=== PATIENT | female | born 1960 | race Caucasian/White ===

== ENCOUNTER 2018-08-12 18:22 | Emergency (ER) | payer OTHER, MEDICARE ==
[~2018-08-12] VITALS: Ht 165.1 cm; Wt 98.6 kg
[2018-08-12 19:25] LABS: BASOPHILS # (AUTO) 0.14 x10^3/uL (0-0.1); BASOPHILS % (AUTO) 1 % (0-1); EOSINOPHILS # (AUTO) 0.01 x10^3/uL (0-0.4); EOSINOPHILS % (AUTO) 0 % (1-7); LYMPHOCYTES # (AUTO) 2.33 x10^3/uL (1-3.4); LYMPHOCYTES % (AUTO) 14 % (22-44); MD NO; MEAN CORPUSCULAR HEMOGLOBIN 29.5 pg (27.0-34.8); MEAN CORPUSCULAR HGB CONC 32.9 g/dL (32.4-35.8); MEAN CORPUSCULAR VOLUME 89.7 fL (80-100); MEAN PLATELET VOLUME 8.6 fL (7.4-10.4); MONOCYTES # (AUTO) 0.88 x10^3/uL (0.2-0.8); MONOCYTES % (AUTO) 6 % (2-9); NEUTROPHILS % (AUTO) 79 % (42-75); PLATELET COUNT 302 x10^3/uL (130-400); RED BLOOD COUNT 3.96 x10^6/uL (3.82-5.3); RED CELL DISTRIBUTION WIDTH 14.4 % (9.6-15.2)
[2018-08-12 19:36] LABS: ALBUMIN 3.5 g/dL (3.4-5.0); ANION GAP 6 mmol/L (5-15); CALCIUM 8.9 mg/dL (8.5-10.1); CHLORIDE 112 mmol/L (98-107); CREATININE 0.96 mg/dL (0.55-1.02)
[2018-08-12] MEDS ORDERED: SODIUM CHLORIDE FLUSH 10ML SYR IVF ONE (20:00)
[2018-08-12] MEDS ORDERED: DIPHENHYDRAMINE 50 MG/ML, 1ML IVPush ONE (20:00)
[2018-08-12] MEDS ORDERED: methylPREDNISolone SOD SUCC 125 MG/2 ML IVPush ONE (20:00)
[2018-08-12] MEDS ORDERED: methylPREDNISolone SOD SUCC 125 MG/2 ML ONE (20:22)
--- NOTE | 2018-08-12 20:30 | NUR ---
BLADDER SLING DONE YESTERDAY BY DR. Joy GRANT. C/O FATIGUE , WEAKNESS TODAY. PT HAS MICHAUD IN PLACE.
[2018-08-12] MEDS ORDERED: DIPHENHYDRAMINE 50 MG/ML, 1ML ONE (20:34)
[2018-08-12 20:41] LABS: CULTURE INDICATED? YES; MICROSCOPIC INDICATED
[2018-08-12] MEDS ORDERED: KETOROLAC 30 MG/1 ML ONE (23:11)
[2018-08-12 23:21] VITALS: BP 134/74
--- NOTE | 2018-08-12 23:21 | NUR ---
Patient/Caregiver given discharge instructions and they have confirmed that they understand the instructions. Patient ambulatory with steady gait.
[2018-08-12] MEDS ORDERED: KETOROLAC 30 MG/1 ML IM ONE (23:30)
== END 2018-08-12 23:23 | disposition home or self-care (01) ==
LOC: ED 23:17
DX: R10.2 Pelvic and perineal pain (principal); R50.9 Fever, unspecified
CPT/HCPCS: 36415; 74021; 74176; 80048; 81001; 82040; 83605; 85025; 87040; 87077; 87086; 96372; 96374; 96375; 99284; J1200; J1885; J2930; 87186

== ENCOUNTER 2019-07-29 10:23 | Outpatient (CLI) | payer OTHER, MEDICARE ==
[2019-07-29] MEDS ORDERED: PANT40TA5 PO (10:52)
[2019-07-29] MEDS ORDERED: FLUT1BLS PO (10:52)
[2019-07-29] MEDS ORDERED: [UNRECOGNIZED DRUG - CODE] INH (10:52)
[2019-07-29] MEDS ORDERED: LIOT5TAB11 PO (10:52)
[2019-07-29] MEDS ORDERED: METF500T17 PO (10:52)
[2019-07-29] MEDS ORDERED: LIRA0.6P2 INJ (10:52)
[2019-07-29] MEDS ORDERED: TRAM50TA2 PO (10:52)
[2019-07-29] MEDS ORDERED: MELO15TA24 PO (10:52)
[2019-07-29] MEDS ORDERED: BUPR150T6 PO (10:52)
[2019-07-29] MEDS ORDERED: TRAZ50TA66 PO (10:52)
[2019-07-29] MEDS ORDERED: MEDR10TA3 PO (10:52)
[2019-07-29] MEDS ORDERED: LEVO100T74 PO (10:52)
[2019-07-29] MEDS ORDERED: FEXO180T72 PO (10:52)
[2019-07-29] MEDS ORDERED: SENN-88 PO (10:52)
[2019-07-29] MEDS ORDERED: CERT400K INJ (10:52)
== END 2019-07-29 23:59 | disposition home or self-care (01) ==
LOC: STAR 10:23
PROVIDERS: ATTEND Colon & Rectal Surgery
DX: Z01.818 Encounter for other preprocedural examination (principal)
CPT/HCPCS: 93005

== ENCOUNTER 2019-08-06 06:06 | Day surgery (SDC) | payer OTHER, MEDICARE ==
[~2019-08-06] VITALS: Ht 167.6 cm; Wt 86.0 kg
[~2019-08-06 06:06] MED LIST: BUPR150T6 PO; CERT400K INJ; FEXO180T72 PO; FLUT1BLS PO; LEVO100T74 PO; LIOT5TAB11 PO; LIRA0.6P2 INJ; MEDR10TA3 PO; MELO15TA24 PO; METF500T17 PO; PANT40TA5 PO; SENN-88 PO; TRAM50TA2 PO; TRAZ50TA66 PO; [UNRECOGNIZED DRUG - CODE] INH
[2019-08-06] MEDS ORDERED: EPINEPHRINE 1 MG/ML, 1ML ONE (06:32)
[2019-08-06] MEDS ORDERED: BUPIVACAINE/PF 0.5% ONE (06:32)
[2019-08-06] MEDS ORDERED: ACETAMINOPHEN 500 MG TABLET PO ONE (07:00)
[2019-08-06] MEDS ORDERED: GABAPENTIN 300 MG CAPSULE PO ONE (07:00)
[2019-08-06] MEDS ORDERED: LACTATED RINGERS 1,000 ML IV SCH (07:05)
[2019-08-06 07:15] VITALS: BP 131/76
[2019-08-06] MEDS ORDERED: LIDOCAINE-MPF 1%, 2ML ONE (07:27)
[2019-08-06] MEDS ORDERED: ONDANSETRON 2MG/ML, 2ML IV PRN (07:30)
[2019-08-06] MEDS ORDERED: OXYcodone 5 MG/5 ML ORAL.SOL UDC PO PRN (07:30)
[2019-08-06] MEDS ORDERED: PROMETHAZINE 25 MG/ML, 1ML IV PRN (07:30)
[2019-08-06] MEDS ORDERED: HYDROmorphone 2 MG/ML, 1ML IVPush PRN (07:30)
[2019-08-06] MEDS ORDERED: LABETALOL 5MG/ML, 20ML IV PRN (07:30)
[2019-08-06] MEDS ORDERED: MEPERIDINE/PF 25MG/ML,1ML IVPush PRN (07:30)
[2019-08-06] MEDS ORDERED: EPHEDRINE 50 MG/ML, 1ML IVPush PRN (07:30)
[2019-08-06] MEDS ORDERED: hydrALAzine 20 MG/ML, 1ML IV PRN (07:30)
[2019-08-06] MEDS ORDERED: FENTANYL PF 250 MCG/5ML ONE (10:24)
[2019-08-06] MEDS ORDERED: MIDAZOLAM 1 MG/ML, 2ML ONE (10:24)
[2019-08-06] MEDS ORDERED: PROPOFOL 10 MG/ML, 20ML ONE (10:25)
[2019-08-06] MEDS ORDERED: ONDANSETRON 2MG/ML, 2ML ONE (10:25)
[2019-08-06] MEDS ORDERED: CEFAZOLIN 1,000 MG ONE (10:25)
[2019-08-06] MEDS ORDERED: DEXAMETHASONE 4 MG/ML, 1ML ONE (10:25)
[2019-08-06] MEDS ORDERED: KETOROLAC 30 MG/1 ML ONE (10:54)
[2019-08-06] MEDS ORDERED: LIDOCAINE-MPF 2% ,5ML ONE (10:54)
[2019-08-06] MEDS ORDERED: EPHEDRINE 50 MG/ML, 1ML ONE (10:57)
[2019-08-06] MEDS ORDERED: OXYcodone 5 MG/5 ML ORAL.SOL UDC ONE (11:44)
[2019-08-06] MEDS ORDERED: FENTANYL PF 100 MCG/2ML ONE (11:44)
[2019-08-06] MEDS ORDERED: HYDROmorphone 1 MG/ML, 1ML INJ ONE (11:45)
[2019-08-06] MEDS: FENTANYL PF 100 MCG/2ML IV PRN ×2 (11:48→11:59)
== END 2019-08-06 14:12 | disposition home or self-care (01) ==
LOC: OUT 06:06
PROVIDERS: ATTEND Colon & Rectal Surgery
DX: K64.9 Unspecified hemorrhoids (principal); K21.9 Gastro-esophageal reflux disease without esophagitis; E03.9 Hypothyroidism, unspecified; Z86.19 Personal history of other infectious and parasitic diseases; Z79.899 Other long term (current) drug therapy; Z98.890 Other specified postprocedural states; Z88.1 Allergy status to other antibiotic agents; Z88.8 Allergy status to other drugs, medicaments and biological substances; Z72.89 Other problems related to lifestyle
CPT/HCPCS: 46946; 82962; C1729; J0171; J0690; J1100; J1170; J1885; J2250; J2405; J2704; J3010; J7120

== ENCOUNTER 2019-08-08 07:34 | Inpatient (IN) | payer OTHER, MEDICARE ==
[~2019-08-08] VITALS: Ht 167.6 cm; Wt 94.0 kg
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
--- NOTE | 2019-08-08 08:22 | NUR ---
MICHAUD CATH INSERTED, PT TOLERATED WELL. UA COLLECTED AND SENT
[2019-08-08 08:38] LABS: BASOPHILS # (AUTO) 0.07 x10^3/uL (0-0.1); BASOPHILS % (AUTO) 1 % (0-1); EOSINOPHILS # (AUTO) 0.02 x10^3/uL (0-0.4); EOSINOPHILS % (AUTO) 0 % (1-7); LYMPHOCYTES # (AUTO) 2.19 x10^3/uL (1-3.4); LYMPHOCYTES % (AUTO) 17 % (22-44); MD NO; MEAN CORPUSCULAR HEMOGLOBIN 30.6 pg (27.0-34.8); MEAN CORPUSCULAR VOLUME 92.7 fL (80-100); MEAN PLATELET VOLUME 7.7 fL (7.4-10.4); MONOCYTES # (AUTO) 0.86 x10^3/uL (0.2-0.8); MONOCYTES % (AUTO) 7 % (2-9); NEUTROPHILS # (AUTO) 9.88 x10^3/uL (1.8-6.8); NEUTROPHILS % (AUTO) 76 % (42-75); PLATELET COUNT 245 x10^3/uL (130-400); RED BLOOD COUNT 4.27 x10^6/uL (3.82-5.3); RED CELL DISTRIBUTION WIDTH 14.3 % (9.6-15.2)
[2019-08-08 08:39] LABS: MICROSCOPIC AUTO
[2019-08-08 08:48] LABS: ALBUMIN 3.2 g/dL (3.4-5.0); ANION GAP 6 mmol/L (5-15); CALCIUM 8.9 mg/dL (8.5-10.1); CHLORIDE 108 mmol/L (98-107)
[2019-08-08 08:49] LABS: CREATININE 1.15 mg/dL (0.55-1.02); CULTURE INDICATED? YES
--- NOTE | 2019-08-08 09:29 | NUR ---
PT RESTING ON GURNEY, GIVEN WARM BLANKETS AND HEATER PER REQUEST, PT ALSO REQUESTING HOSPITAL SOCKS, THESE WERE PROVIDED WELL. VSS, NAD NOTED, PT PLACED FOR RECHECK
[2019-08-08] MEDS ORDERED: HYDROmorphone 1 MG/ML, 1ML INJ ONE (09:44)
[2019-08-08] MEDS ORDERED: ONDANSETRON 2MG/ML, 2ML ONE (09:45)
[2019-08-08] MEDS ORDERED: NITROFURANTOIN (MACROBID) 100 MG CAPSULE ONE (09:57)
[2019-08-08] MEDS ORDERED: ONDANSETRON 2MG/ML, 2ML IVPush ONE (10:00)
[2019-08-08] MEDS ORDERED: NITROFURANTOIN (MACROBID) 100 MG CAPSULE PO ONE (10:00)
[2019-08-08] MEDS ORDERED: HYDROmorphone 2 MG/ML, 1ML IVPush PRN (10:00)
--- NOTE | 2019-08-08 10:12 | NUR ---
PT NOW WITH C/O ABD PAIN RATED 7/10, STATES IT FEELS LIKE SHE HAS TO HAVE A BM BUT CANT, PT MEDICATED FOR PAIN PER MAR. ERMD IN TO UPDATE PT ON POC.
[2019-08-08] MEDS ORDERED: SODIUM CHLORIDE 0.9% 1,000 ML IV SCH (10:29)
[2019-08-08] MEDS ORDERED: SODIUM CHLORIDE FLUSH 10ML SYR IVF PRN (10:30)
--- NOTE | 2019-08-08 10:52 | NUR ---
ADMITTING MD IN TO [facility] PT
--- NOTE | 2019-08-08 12:39 | NUR ---
PT RESTING ON SOPHIE QUIROZ. AWAITING BED PLACEMENT. MED REQUEST SENT TO PHARM FOR ABX. FLUIDS HUNG PER MD ORDER. PT DENIES NEEDS AT THIS TIME
--- NOTE | 2019-08-08 13:24 | NUR ---
TASK RN: BEDSIDE REPORT RECEIVED FROM JOSETTE SHIN. PT RESTING ON GURNEY. PT AWAITING TO ROOM ASSIGNMENT. NO NEEDS REQUESTED AT THIS TIME.
--- NOTE | 2019-08-08 14:16 | NUR ---
REPORT GIVEN TO RECIEVING RN, AWAITING TRANSPORT
[2019-08-08] MEDS: AZTREONAM 2 GM in DEXTROSE 5% 100 ML IV SCH ×2 (14:17→22:05)
[2019-08-08 15:25] VITALS: BP 116/75
[2019-08-08] MEDS: ACETAMINOPHEN 325 MG TABLET PO PRN (16:17)
[2019-08-08] MEDS: ENOXAPARIN 40 MG/0.4 ML SQ SCH (16:18)
[2019-08-08] MEDS: KETOROLAC 30 MG/1 ML IVPush PRN (18:29)
[2019-08-08 19:01] VITALS: BP 102/68
[2019-08-08] MEDS: SODIUM CHLORIDE 0.9% 1,000 ML IV SCH (20:35)
[2019-08-09 00:07] VITALS: BP 127/77
[2019-08-09] MEDS: KETOROLAC 30 MG/1 ML IVPush PRN ×3 (01:16→18:20)
[2019-08-09] MEDS: SODIUM CHLORIDE 0.9% 1,000 ML IV SCH (05:12)
[2019-08-09] MEDS: AZTREONAM 2 GM in DEXTROSE 5% 100 ML IV SCH ×3 (05:12→22:36)
[2019-08-09 05:47] LABS: ANION GAP 6 mmol/L (5-15); CALCIUM 8.4 mg/dL (8.5-10.1); CHLORIDE 111 mmol/L (98-107); CREATININE 0.98 mg/dL (0.55-1.02)
[2019-08-09] MEDS ORDERED: LEVOTHYROXINE 100 MCG TABLET PO SCH (06:00)
[2019-08-09] MEDS ORDERED: LIOTHYRONINE 5 MCG TABLET PO SCH (06:00)
[2019-08-09 06:21] LABS: BASOPHILS # (AUTO) 0.01 x10^3/uL (0-0.1); BASOPHILS % (AUTO) 0 % (0-1); EOSINOPHILS # (AUTO) 0.11 x10^3/uL (0-0.4); EOSINOPHILS % (AUTO) 1 % (1-7); LYMPHOCYTES # (AUTO) 2.14 x10^3/uL (1-3.4); LYMPHOCYTES % (AUTO) 22 % (22-44); MD NO; MEAN CORPUSCULAR HEMOGLOBIN 30.1 pg (27.0-34.8); MEAN CORPUSCULAR HGB CONC 32.4 g/dL (32.4-35.8); MEAN PLATELET VOLUME 7.9 fL (7.4-10.4); MONOCYTES # (AUTO) 0.73 x10^3/uL (0.2-0.8); MONOCYTES % (AUTO) 7 % (2-9); NEUTROPHILS # (AUTO) 6.83 x10^3/uL (1.8-6.8); NEUTROPHILS % (AUTO) 70 % (42-75); PLATELET COUNT 220 x10^3/uL (130-400); RED BLOOD COUNT 3.78 x10^6/uL (3.82-5.3); RED CELL DISTRIBUTION WIDTH 14.4 % (9.6-15.2)
[2019-08-09 07:13] VITALS: BP 110/73
[2019-08-09] MEDS ORDERED: TEMPLATE NON-FORMULARY MED. (Bupropion Hcl** (Bupropion Xl**) 150 MG) PO SCH (09:00)
[2019-08-09] MEDS: BUPROPION SR 150 MG TABLET PO SCH (09:04)
[2019-08-09 12:55] VITALS: BP 116/74
[2019-08-09] MEDS: OXYcodone/APAP 5/325MG TABLET PO PRN ×2 (13:41→22:35)
[2019-08-09] MEDS: ENOXAPARIN 40 MG/0.4 ML SQ SCH (16:00)
[2019-08-09 19:49] VITALS: BP 119/72
[2019-08-09] MEDS ORDERED: SODIUM CHLORIDE 0.9% 1,000 ML IV SCH (20:30)
[2019-08-10] MEDS: KETOROLAC 30 MG/1 ML IVPush PRN ×2 (00:30→16:59)
[2019-08-10 00:33] VITALS: BP 112/70
[2019-08-10] MEDS: AZTREONAM 2 GM in DEXTROSE 5% 100 ML IV SCH ×3 (06:12→21:59)
[2019-08-10] MEDS: LEVOTHYROXINE 100 MCG TABLET PO SCH (06:12)
[2019-08-10] MEDS: LIOTHYRONINE 5 MCG TABLET PO SCH (06:12)
[2019-08-10 07:49] VITALS: BP 139/71
[2019-08-10] MEDS: BUPROPION SR 150 MG TABLET PO SCH (08:04)
[2019-08-10 11:40] VITALS: BP 134/80
[2019-08-10] MEDS: ACETAMINOPHEN 325 MG TABLET PO PRN (13:14)
[2019-08-10] MEDS: ENOXAPARIN 40 MG/0.4 ML SQ SCH (16:00)
[2019-08-10 20:18] VITALS: BP 128/78
[2019-08-11 00:43] VITALS: BP 118/73
[2019-08-11] MEDS: AZTREONAM 2 GM in DEXTROSE 5% 100 ML IV SCH ×3 (01:39→17:44)
[2019-08-11] MEDS: KETOROLAC 30 MG/1 ML IVPush PRN ×2 (01:40→10:38)
[2019-08-11] MEDS: LIOTHYRONINE 5 MCG TABLET PO SCH (06:01)
[2019-08-11] MEDS: LEVOTHYROXINE 100 MCG TABLET PO SCH (06:01)
[2019-08-11 06:46] VITALS: BP 128/74
[2019-08-11] MEDS: BUPROPION SR 150 MG TABLET PO SCH (08:39)
[2019-08-11 12:57] VITALS: BP 126/65
[2019-08-11] MEDS: ENOXAPARIN 40 MG/0.4 ML SQ SCH (16:00)
[2019-08-11] MEDS ORDERED: AMOX1TAB64 PO (16:44)
== END 2019-08-11 20:20 | disposition home or self-care (01) | DRG 690 ==
LOC: ED 08:40 → EDIP 10:30 → 3N 14:38
PROVIDERS: ADMIT Internal Medicine Infectious Disease; ATTEND Internal Medicine Infectious Disease
PROC: 0T9B70Z Drainage of Bladder with Drainage Device, Via Natural or Artificial Opening (ICD-10-PCS; principal; 2019-08-08)
DX: N10 Acute pyelonephritis (principal); E86.0 Dehydration; E11.9 Type 2 diabetes mellitus without complications; E03.9 Hypothyroidism, unspecified; K64.9 Unspecified hemorrhoids; M06.9 Rheumatoid arthritis, unspecified; Z87.440 Personal history of urinary (tract) infections; R33.8 Other retention of urine; K21.9 Gastro-esophageal reflux disease without esophagitis; M54.5 Low back pain; Z88.2 Allergy status to sulfonamides; Z88.8 Allergy status to other drugs, medicaments and biological substances; Z88.1 Allergy status to other antibiotic agents; Z91.041 Radiographic dye allergy status; Z91.013 Allergy to seafood
CPT/HCPCS: 36415; 74176; 76770; 80048; 81001; 82040; 85025; 87040; 87077; 87086; 87186; 96374; G0378; J1170; J1650; J1885; J2405; J7030

== ENCOUNTER 2019-11-23 09:05 | Outpatient (CLI) | payer OTHER, MEDICARE ==
[~2019-11-23 09:05] MED LIST changes: +AMOX1TAB64 PO
[2019-11-23] MEDS ORDERED: CERT400K INJ (09:33)
[2019-11-23] MEDS ORDERED: ALBU8.5H8 INH (09:33)
== END 2019-11-23 23:59 | disposition home or self-care (01) ==
LOC: STAR 09:05
PROVIDERS: ATTEND Colon & Rectal Surgery
DX: Z01.818 Encounter for other preprocedural examination (principal); Z11.59 Encounter for screening for other viral diseases; I45.19 Other right bundle-branch block
CPT/HCPCS: 93005; U0001

== ENCOUNTER 2019-11-26 06:13 | Day surgery (SDC) | payer OTHER, MEDICARE ==
[~2019-11-26] VITALS: Ht 167.6 cm; Wt 89.0 kg
[~2019-11-26 06:13] MED LIST changes: +ALBU8.5H8 INH
[2019-11-26] MEDS ORDERED: LACTATED RINGERS 1,000 ML IV SCH (06:31)
[2019-11-26 06:35] VITALS: BP 128/54
[2019-11-26] MEDS ORDERED: BUPIVACAINE/PF-EPI 0.5% 1:200K ONE (06:50)
[2019-11-26] MEDS ORDERED: CHLORHEXIDINE 15 ML UDC MM ONE (07:00)
[2019-11-26] MEDS ORDERED: MIDAZOLAM 1 MG/ML, 2ML ONE (07:15)
[2019-11-26] MEDS ORDERED: FENTANYL PF 250 MCG/5ML ONE (07:15)
[2019-11-26] MEDS ORDERED: ROCURONIUM 10MG/ML,5ML ONE (07:17)
[2019-11-26] MEDS ORDERED: SUCCINYLCHOLINE 20 MG/ML, 10ML ONE (07:18)
[2019-11-26] MEDS ORDERED: DEXAMETHASONE 4 MG/ML, 1ML ONE (07:57)
[2019-11-26] MEDS ORDERED: PROPOFOL 10 MG/ML, 20ML ONE (07:57)
[2019-11-26] MEDS ORDERED: BUPIVACAINE/PF-EPI 0.5% 1:200K INFIL ONE (08:08)
[2019-11-26] MEDS ORDERED: ACETAMINOPHEN 325 MG TABLET PO PRN (09:00)
[2019-11-26] MEDS ORDERED: DIPHENHYDRAMINE 50 MG/ML, 1ML IVPush PRN (09:00)
[2019-11-26] MEDS ORDERED: DIAZEPAM 5 MG/ML, 2ML IVPush PRN (09:00)
[2019-11-26] MEDS ORDERED: LABETALOL 5MG/ML, 20ML IV PRN (09:00)
[2019-11-26] MEDS ORDERED: HYDROmorphone 1 MG/ML, 1ML INJ IVPush PRN (09:00)
[2019-11-26] MEDS ORDERED: PROMETHAZINE 25 MG/ML, 1ML IVPush PRN (09:00)
[2019-11-26] MEDS ORDERED: MIDAZOLAM 1 MG/ML, 2ML IV PRN (09:00)
[2019-11-26] MEDS ORDERED: EPHEDRINE 50 MG/ML, 1ML IVPush PRN (09:00)
[2019-11-26] MEDS ORDERED: ONDANSETRON 2MG/ML, 2ML IVPush PRN (09:00)
[2019-11-26] MEDS ORDERED: PROMETHAZINE 12.5 MG SUPP PR PRN (09:00)
[2019-11-26] MEDS ORDERED: FENTANYL PF 100 MCG/2ML IV PRN (09:00)
[2019-11-26] MEDS ORDERED: ALBUTEROL SULFATE 2.5 MG/3 ML NPPB PRN (09:00)
[2019-11-26] MEDS ORDERED: MEPERIDINE/PF 25MG/0.5ML IVPush PRN (09:00)
[2019-11-26] MEDS ORDERED: hydrALAzine 20 MG/ML, 1ML IV PRN (09:00)
[2019-11-26] MEDS: OXYcodone 5 MG/5 ML ORAL.SOL UDC PO PRN ×2 (09:05→09:51)
[2019-11-26] MEDS ORDERED: OXYcodone 5 MG/5 ML ORAL.SOL UDC ONE ×2 (09:07→09:48)
[2019-11-26] MEDS ORDERED: FENTANYL PF 100 MCG/2ML ONE (09:07)
== END 2019-11-26 11:15 | disposition home or self-care (01) ==
LOC: OUT 06:13
PROVIDERS: ATTEND Colon & Rectal Surgery
DX: K64.4 Residual hemorrhoidal skin tags (principal); K60.3 Anal fistula; E03.9 Hypothyroidism, unspecified; K74.60 Unspecified cirrhosis of liver; B19.20 Unspecified viral hepatitis C without hepatic coma; K51.90 Ulcerative colitis, unspecified, without complications; M06.9 Rheumatoid arthritis, unspecified; K21.9 Gastro-esophageal reflux disease without esophagitis; Z79.890 Hormone replacement therapy; Z79.899 Other long term (current) drug therapy; Z88.2 Allergy status to sulfonamides; Z88.8 Allergy status to other drugs, medicaments and biological substances; Z91.011 Allergy to milk products; Z91.013 Allergy to seafood; Z83.3 Family history of diabetes mellitus; Z82.49 Family history of ischemic heart disease and other diseases of the circulatory system; Z80.51 Family history of malignant neoplasm of kidney
CPT/HCPCS: 46270; J0330; J1100; J2250; J2704; J3010; J7120

== ENCOUNTER 2020-01-08 22:14 | Emergency (ER) | payer OTHER, MEDICARE ==
[~2020-01-08] VITALS: Ht 167.6 cm; Wt 93.7 kg
[~2020-01-08 22:14] MED LIST changes: +SENN-190 PO; -SENN-88 PO
[2020-01-08 22:53] LABS: MICROSCOPIC INDICATED
[2020-01-08 23:00] LABS: BASOPHILS # (AUTO) 0.05 x10^3/uL (0-0.1); BASOPHILS % (AUTO) 1 % (0-1); EOSINOPHILS # (AUTO) 0.07 x10^3/uL (0-0.4); EOSINOPHILS % (AUTO) 1 % (1-7); LYMPHOCYTES # (AUTO) 2.23 x10^3/uL (1-3.4); LYMPHOCYTES % (AUTO) 24 % (22-44); MD NO; MEAN CORPUSCULAR HGB CONC 33.1 g/dL (32.4-35.8); MEAN CORPUSCULAR VOLUME 93.8 fL (80-100); MEAN PLATELET VOLUME 7.7 fL (7.4-10.4); MONOCYTES # (AUTO) 0.37 x10^3/uL (0.2-0.8); MONOCYTES % (AUTO) 4 % (2-9); NEUTROPHILS # (AUTO) 6.67 x10^3/uL (1.8-6.8); NEUTROPHILS % (AUTO) 71 % (42-75); PLATELET COUNT 345 x10^3/uL (130-400); RED BLOOD COUNT 4.38 x10^6/uL (3.82-5.3)
[2020-01-08 23:12] LABS: ALANINE AMINOTRANSFERASE 29 U/L (12-78); ALBUMIN 3.5 g/dL (3.4-5.0); ANION GAP 8 mmol/L (5-15); CALCIUM 8.7 mg/dL (8.5-10.1); CHLORIDE 108 mmol/L (98-107); CREATININE 1.32 mg/dL (0.55-1.02)
[2020-01-08 23:14] LABS: ALKALINE PHOSPHATASE 85 U/L (45-117); BILIRUBIN,TOTAL 0.6 mg/dL (0.2-1.0)
[2020-01-09] MEDS ORDERED: MORPHINE SULFATE 4 MG/ML, 1ML IVPush PRN (01:30)
[2020-01-09] MEDS ORDERED: CIPROFLOXACIN/PMX 400MG/200ML 200 ML IV ONE (01:30)
[2020-01-09] MEDS ORDERED: ONDANSETRON 2MG/ML, 2ML IVPush ONE (01:30)
[2020-01-09] MEDS ORDERED: CEFTRIAXONE PMX 1GM/50ML 50 ML IV ONE (01:30)
[2020-01-09] MEDS ORDERED: MORPHINE SULFATE 4 MG/ML, 1ML ONE (01:39)
[2020-01-09] MEDS ORDERED: CEFTRIAXONE PMX 1GM/50ML 50 ML ONE (01:39)
[2020-01-09] MEDS ORDERED: ONDANSETRON 2MG/ML, 2ML ONE (01:39)
[2020-01-09 01:59] VITALS: BP 135/82
--- NOTE | 2020-01-09 02:00 | NUR ---
PT HERE FOR RIGHT FLANK PAIN. VSS. PIV PLACED AND PT MEDICATED FOR PAIN AND NAUSEA. ABX RUNNING.
== END 2020-01-09 03:18 | disposition home or self-care (01) ==
LOC: ED 01-09 02:18
DX: N10 Acute pyelonephritis (principal); E03.9 Hypothyroidism, unspecified; K21.9 Gastro-esophageal reflux disease without esophagitis
CPT/HCPCS: 36415; 80053; 81001; 83690; 85025; 87077; 87086; 87186; 96365; 96375; 99284; J0696; J2270; J2405

== ENCOUNTER 2020-02-15 16:08 | Inpatient (IN) | payer OTHER, MEDICARE ==
[~2020-02-15] VITALS: Ht 170.2 cm; Wt 91.7 kg
--- NOTE | 2020-02-15 16:37 | NUR ---
PT IN GOWN IN [facility] WITH DR COLLAZO AT FOR PT HISTORY AND ASSESSMENT. PT EDUCATED ON ER PROCESS AND POC AND VERBALIZES UNDERSTANDING. PT ATTACHED TO VS MONITORS AND CARDIAC MONITORS. VSS AT THIS TIME. PT HAS CALL LIGHT WITHIN REACH.
[2020-02-15] MEDS ORDERED: MORPHINE SULFATE 4 MG/ML, 1ML ONE ×2 (16:55→18:43)
[2020-02-15] MEDS: MORPHINE SULFATE 4 MG/ML, 1ML IVPush PRN ×2 (17:04→18:47)
--- NOTE | 2020-02-15 17:04 | NUR ---
PT MEDICATED PER MAR FOR PAIN
[2020-02-15 17:07] LABS: BASOPHILS # (AUTO) 0.04 x10^3/uL (0-0.1); BASOPHILS % (AUTO) 1 % (0-1); EOSINOPHILS # (AUTO) 0.05 x10^3/uL (0-0.4); EOSINOPHILS % (AUTO) 1 % (1-7); LYMPHOCYTES # (AUTO) 1.92 x10^3/uL (1-3.4); LYMPHOCYTES % (AUTO) 29 % (22-44); MD NO; MEAN CORPUSCULAR HEMOGLOBIN 30.3 pg (27.0-34.8); MEAN CORPUSCULAR HGB CONC 32.6 g/dL (32.4-35.8); MONOCYTES # (AUTO) 0.49 x10^3/uL (0.2-0.8); MONOCYTES % (AUTO) 7 % (2-9); NEUTROPHILS # (AUTO) 4.15 x10^3/uL (1.8-6.8); NEUTROPHILS % (AUTO) 63 % (42-75); PLATELET COUNT 334 x10^3/uL (130-400); RED BLOOD COUNT 4.62 x10^6/uL (3.82-5.3); RED CELL DISTRIBUTION WIDTH 14.6 % (9.6-15.2)
[2020-02-15 17:19] LABS: ALANINE AMINOTRANSFERASE 48 U/L (12-78); ALBUMIN 3.7 g/dL (3.4-5.0); ANION GAP 8 mmol/L (5-15); CALCIUM 9.2 mg/dL (8.5-10.1); CHLORIDE 109 mmol/L (98-107); CREATININE 1.17 mg/dL (0.55-1.02)
[2020-02-15 17:24] LABS: ALKALINE PHOSPHATASE 83 U/L (45-117); BILIRUBIN,TOTAL 0.6 mg/dL (0.2-1.0); TOTAL PROTEIN 7.3 g/dL (6.4-8.2); TROPONIN I 0.034 ng/mL (0.000-0.045)
[2020-02-15] MEDS ORDERED: LABETALOL 5MG/ML, 20ML ONE (17:29)
[2020-02-15] MEDS ORDERED: LABETALOL 5MG/ML, 20ML IVPush ONE (17:30)
--- NOTE | 2020-02-15 17:34 | NUR ---
PT MEDICATED FOR HTN PER SEP. PT RESTING COMFORTABLY IN [facility] WITH CALL LIGHT WITHIN REACH AND FAMILY AT BS.
[2020-02-15] MEDS ORDERED: MAALOX/HYOSCYAMINE/LIDOCAINE 45 ML BTL PO ONE (19:00)
[2020-02-15] MEDS ORDERED: MAALOX/HYOSCYAMINE/LIDOCAINE 45 ML BTL ONE (19:06)
[2020-02-15] MEDS ORDERED: hydrALAzine 20 MG/ML, 1ML IV PRN (20:00)
[2020-02-15] MEDS ORDERED: NITROGLYCERIN SINGLE TAB 0.4 MG SL PRN (20:00)
[2020-02-15] MEDS ORDERED: MORPHINE SULFATE 4 MG/ML, 1ML IVPush PRN (20:00)
[2020-02-15] MEDS ORDERED: morphine SULFATE 10 MG/ML, 1ML IV PRN (20:00)
--- NOTE | 2020-02-15 20:22 | NUR ---
REPORT CALLED TO JOSETTE HERNANDEZ. HOSPITALIST AT BEDSIDE. TRANSPORT STAFF AT BEDSIDE. CALL LIGHT IN REACH.
[2020-02-15 21:34] VITALS: BP 143/85
[2020-02-15] MEDS: SODIUM CHLORIDE FLUSH 10ML SYR IVF SCH (21:39)
[2020-02-15] MEDS: ATORVASTATIN 80 MG TABLET PO SCH (21:41)
[2020-02-15] MEDS: LISINOPRIL 10 MG TABLET PO SCH (21:42)
[2020-02-15] MEDS: TRAZODONE 50MG TABLET PO SCH (21:45)
[2020-02-15 22:14] LABS: CHOLESTEROL, TOTAL 171 mg/dL (140-239); TRIGLYCERIDES 80 mg/dL (50-200); VLDL CHOLESTEROL 16 mg/dL (0-25)
[2020-02-15 22:16] LABS: CHOL/HDL RATIO 3.4; HDL CHOL % 29 % (28-40); HDL CHOLESTEROL (DIRECT) 50 mg/dL (40-60); LDL CHOLESTEROL,CALCULATED 105 mg/dL (54-169); LDL/HDL RATIO 2.1 (0.5-3.0); TROPONIN I 0.311 ng/mL (0.000-0.045)
[2020-02-16 03:40] VITALS: BP 136/72
[2020-02-16] MEDS: LIOTHYRONINE 5 MCG TABLET PO SCH (06:18)
[2020-02-16] MEDS: ASPIRIN 325 MG TABLET EC PO SCH (06:19)
[2020-02-16] MEDS: LEVOTHYROXINE 100 MCG TABLET PO SCH (06:19)
[2020-02-16] MEDS: PANTOPRAZOLE 40MG TABLET PO SCH (06:20)
[2020-02-16 07:08] VITALS: BP 116/76
[2020-02-16] MEDS ORDERED: HEPARIN 25,000 UNITS/250ML PMX 250 ML IV PRN (07:30)
[2020-02-16] MEDS ORDERED: HEPARIN 5,000 UNITS/ML, 1ML IV ONE (07:30)
[2020-02-16] MEDS ORDERED: HEPARIN 5,000 UNITS/ML, 1ML IV PRN (07:30)
[2020-02-16] MEDS: FLUTICASONE/VILANTEROL 200-25MCG/INH INH SCH (07:41)
[2020-02-16] MEDS: [UNRECOGNIZED DRUG - REMARK] HOMEMEDPO SCH (07:42)
[2020-02-16] MEDS: SODIUM CHLORIDE FLUSH 10ML SYR IVF SCH ×2 (07:42→20:14)
[2020-02-16] MEDS: BUPROPION SR 150 MG TABLET PO SCH (07:57)
[2020-02-16] MEDS: LISINOPRIL 10 MG TABLET PO SCH (07:57)
[2020-02-16] MEDS: METOPROLOL TARTRATE 25 MG TAB PO SCH ×2 (07:57→16:26)
[2020-02-16] MEDS ORDERED: DIPHENHYDRAMINE 50 MG/ML, 1ML IVPush ONE (09:00)
[2020-02-16] MEDS ORDERED: methylPREDNISolone SOD SUCC 125 MG/2 ML IVPush SCH (09:00)
[2020-02-16] MEDS ORDERED: MEDROXYPROGESTERONE ACETATE 5 MG TABLET PO SCH (09:00)
[2020-02-16] MEDS ORDERED: HYDROCHLOROTHIAZIDE 12.5 MG CAPSULE PO SCH (09:00)
[2020-02-16] MEDS ORDERED: ALBUTEROL HFA 90 MCG/SPRAY INH PRN (09:00)
[2020-02-16 12:42] VITALS: BP 114/74
[2020-02-16] MEDS ORDERED: MIDAZOLAM 1 MG/ML, 5ML ONE (13:57)
[2020-02-16] MEDS ORDERED: VERAPAMIL 2.5 MG/ML, 2ML ONE (13:58)
[2020-02-16] MEDS ORDERED: LIDOCAINE-MPF 1%, 5ML ONE (13:58)
[2020-02-16] MEDS ORDERED: HEPARIN 1,000 UNITS/ML, 10ML ONE (13:58)
[2020-02-16] MEDS ORDERED: FENTANYL PF 100 MCG/2ML ONE (13:58)
[2020-02-16] MEDS ORDERED: TICAGRELOR 90 MG TABLET ONE (13:58)
[2020-02-16] MEDS ORDERED: BIVALIRUDIN 250 MG ONE (13:58)
[2020-02-16] MEDS: SODIUM CHLORIDE 0.9% 1,000 ML IV SCH (15:22)
[2020-02-16] MEDS ORDERED: DOCUSATE 100 MG CAPSULE PO PRN (17:00)
[2020-02-16] MEDS: TRAZODONE 50MG TABLET PO SCH (20:14)
[2020-02-16] MEDS: ATORVASTATIN 80 MG TABLET PO SCH (20:14)
[2020-02-16 20:24] VITALS: BP 99/62
[2020-02-16] MEDS ORDERED: DIPHENHYDRAMINE 50 MG/ML, 1ML IVPush STA (21:47)
[2020-02-16] MEDS ORDERED: DIPHENHYDRAMINE 50 MG/ML, 1ML ONE (21:49)
[2020-02-17 00:07] VITALS: BP 103/67
[2020-02-17] MEDS ORDERED: DIPHENHYDRAMINE 50 MG/ML, 1ML IVPush STA (02:42)
[2020-02-17] MEDS ORDERED: DIPHENHYDRAMINE 50 MG/ML, 1ML ONE (02:45)
[2020-02-17 02:50] VITALS: BP 106/70
[2020-02-17 05:04] LABS: CALCIUM 8.7 mg/dL (8.5-10.1); CHLORIDE 109 mmol/L (98-107)
[2020-02-17 05:07] LABS: ANION GAP 8 mmol/L (5-15); CREATININE 1.17 mg/dL (0.55-1.02)
[2020-02-17 05:44] VITALS: BP 103/65
[2020-02-17] MEDS: METOPROLOL TARTRATE 25 MG TAB PO SCH ×2 (05:45→16:44)
[2020-02-17] MEDS: ASPIRIN 325 MG TABLET EC PO SCH (05:45)
[2020-02-17] MEDS: LIOTHYRONINE 5 MCG TABLET PO SCH (05:45)
[2020-02-17] MEDS: PANTOPRAZOLE 40MG TABLET PO SCH (05:45)
[2020-02-17] MEDS: LEVOTHYROXINE 100 MCG TABLET PO SCH (05:46)
[2020-02-17 07:16] VITALS: BP 111/72
[2020-02-17] MEDS: SODIUM CHLORIDE 0.9% 1,000 ML IV SCH ×2 (07:45)
[2020-02-17] MEDS: [UNRECOGNIZED DRUG - REMARK] HOMEMEDPO SCH (07:45)
[2020-02-17] MEDS: FLUTICASONE/VILANTEROL 200-25MCG/INH INH SCH (07:45)
[2020-02-17] MEDS: LISINOPRIL 10 MG TABLET PO SCH (08:14)
[2020-02-17] MEDS: BUPROPION SR 150 MG TABLET PO SCH (08:14)
[2020-02-17] MEDS: SODIUM CHLORIDE FLUSH 10ML SYR IVF SCH (08:15)
[2020-02-17] MEDS: methylPREDNISolone SOD SUCC 125 MG/2 ML IVPush SCH ×2 (09:12→16:43)
[2020-02-17] MEDS ORDERED: CLOPIDOGREL 300 MG TABLET PO ONE (10:00)
[2020-02-17] MEDS: DIPHENHYDRAMINE 50 MG/ML, 1ML IVPush PRN ×2 (10:12→16:43)
[2020-02-17 13:17] VITALS: BP 120/73
[2020-02-17] MEDS ORDERED: ATOR-2 PO (15:19)
[2020-02-17] MEDS ORDERED: METO25TA35 PO (15:19)
[2020-02-17] MEDS ORDERED: ASPI-650 PO (15:19)
[2020-02-17] MEDS ORDERED: CLOP75TA PO (15:19)
[2020-02-18] MEDS ORDERED: ASPIRIN 325 MG TABLET EC PO SCH (06:00)
[2020-02-18] MEDS ORDERED: CLOPIDOGREL 75 MG TABLET PO SCH (09:00)
== END 2020-02-17 18:56 | disposition home or self-care (01) | DRG 282 ==
LOC: ED 19:40 → EDIP 19:50 → OBSVTOIN 19:50 → INTOOBSV 19:50 → 5SO 21:20
PROVIDERS: ADMIT Family Medicine; ATTEND Internal Medicine
PROC: 4A023N7 Measurement of Cardiac Sampling and Pressure, Left Heart, Percutaneous Approach (ICD-10-PCS; principal; 2020-02-16)
PROC: B2111ZZ Fluoroscopy of Multiple Coronary Arteries using Low Osmolar Contrast (ICD-10-PCS; 2020-02-16)
PROC: B2151ZZ Fluoroscopy of Left Heart using Low Osmolar Contrast (ICD-10-PCS; 2020-02-16)
DX: I21.4 Non-ST elevation (NSTEMI) myocardial infarction (principal); E03.9 Hypothyroidism, unspecified; E11.9 Type 2 diabetes mellitus without complications; I10 Essential (primary) hypertension; I25.10 Atherosclerotic heart disease of native coronary artery without angina pectoris; M06.9 Rheumatoid arthritis, unspecified; T50.8X5A Adverse effect of diagnostic agents, initial encounter; B19.20 Unspecified viral hepatitis C without hepatic coma; K21.9 Gastro-esophageal reflux disease without esophagitis; Z88.0 Allergy status to penicillin; Z88.8 Allergy status to other drugs, medicaments and biological substances; Z87.891 Personal history of nicotine dependence; Z88.1 Allergy status to other antibiotic agents; Z91.041 Radiographic dye allergy status; Z91.011 Allergy to milk products; Y92.89 Other specified places as the place of occurrence of the external cause
CPT/HCPCS: 36415; 71045; 80048; 80053; 80061; 83036; 83880; 84443; 84484; 85025; 85379; 85520; 93005; 93306; 93458; 99156; C1769; C1894; G0378; J0583; J1644; J2250; J3010; J1200; J2270; J2930; Q9967

== ENCOUNTER 2020-03-11 18:35 | Emergency (ER) | payer OTHER, MEDICARE ==
[~2020-03-11] VITALS: Ht 167.6 cm; Wt 92.0 kg
[~2020-03-11 18:35] MED LIST changes: +ASPI-650 PO; +ATOR-2 PO; +CLOP75TA PO; +METO25TA35 PO
[2020-03-11 20:35] LABS: MICROSCOPIC AUTO
[2020-03-11 21:02] LABS: BASOPHILS # (AUTO) 0.05 x10^3/uL (0-0.1); BASOPHILS % (AUTO) 0 % (0-1); EOSINOPHILS # (AUTO) 0.11 x10^3/uL (0-0.4); EOSINOPHILS % (AUTO) 1 % (1-7); LYMPHOCYTES # (AUTO) 2.39 x10^3/uL (1-3.4); LYMPHOCYTES % (AUTO) 19 % (22-44); MD NO; MEAN CORPUSCULAR HEMOGLOBIN 30.8 pg (27.0-34.8); MEAN CORPUSCULAR HGB CONC 32.9 g/dL (32.4-35.8); MEAN CORPUSCULAR VOLUME 93.6 fL (80-100); MONOCYTES # (AUTO) 0.68 x10^3/uL (0.2-0.8); MONOCYTES % (AUTO) 5 % (2-9); NEUTROPHILS % (AUTO) 75 % (42-75); PLATELET COUNT 313 x10^3/uL (130-400); RED BLOOD COUNT 4.41 x10^6/uL (3.82-5.3); RED CELL DISTRIBUTION WIDTH 13.9 % (9.6-15.2)
[2020-03-11 21:13] LABS: ALANINE AMINOTRANSFERASE 23 U/L (12-78); ALBUMIN 3.4 g/dL (3.4-5.0); ANION GAP 5 mmol/L (5-15); CALCIUM 9.3 mg/dL (8.5-10.1); CHLORIDE 107 mmol/L (98-107); CREATININE 1.12 mg/dL (0.55-1.02)
[2020-03-11 21:15] LABS: ALKALINE PHOSPHATASE 95 U/L (45-117); BILIRUBIN,TOTAL 0.6 mg/dL (0.2-1.0); TOTAL PROTEIN 7.2 g/dL (6.4-8.2)
--- NOTE | 2020-03-11 21:20 | NUR ---
ASSUMED ARE OF PATIENT. PATIENT REPORTS RIGHT FLANK PAIN WITH PAINFUL URINATION. PT REPORTS SHE GETS UTI'S AND HAS A UROLOGIST. VS STABLE. MED STUDENT IN ROOM. NO ACUTE DISTRESS NOTED. CALL LIGHT IN PLACE. WILL CONTINUE TO MONITOR.
--- NOTE | 2020-03-11 22:17 | NUR ---
PT RESTING IN ROOM. NO ACUTE DISTRESS NOTED. WILL CONTIUE TO MONITOR.
[2020-03-11] MEDS ORDERED: NITROFURANTOIN (MACROBID) 100 MG CAPSULE ONE (22:26)
[2020-03-11] MEDS ORDERED: NITROFURANTOIN (MACROBID) 100 MG CAPSULE PO ONE (22:30)
[2020-03-11 22:42] VITALS: BP 126/74
== END 2020-03-11 22:44 | disposition home or self-care (01) ==
LOC: ED 20:52
DX: N30.00 Acute cystitis without hematuria (principal); R30.0 Dysuria; R10.30 Lower abdominal pain, unspecified; M19.90 Unspecified osteoarthritis, unspecified site; K21.9 Gastro-esophageal reflux disease without esophagitis; E03.9 Hypothyroidism, unspecified
CPT/HCPCS: 36415; 80053; 81001; 85025; 87086; 99283

== ENCOUNTER 2020-09-23 10:49 | Inpatient (IN) | payer BC, MEDICARE ==
[~2020-09-23] VITALS: Ht 167.6 cm; Wt 99.3 kg
[~2020-09-23 10:49] MED LIST changes: -ASPI-650 PO; +ASPI325T20 PO; +BUPR150T22 PO; -BUPR150T6 PO; -PANT40TA5 PO; +PANT40TA6 PO
[2020-09-23] MEDS ORDERED: ASPI-963 PO (11:18)
[2020-09-23] MEDS ORDERED: PANT40TA6 PO (11:19)
[2020-09-23] MEDS ORDERED: METF-754 PO (11:20)
[2020-09-23] MEDS ORDERED: METH1TAB21 PO (11:22)
[2020-09-23] MEDS ORDERED: LOSA1TAB19 PO (11:23)
[2020-09-23] MEDS ORDERED: TRAM50TA2 PO (11:24)
[2020-09-23] MEDS ORDERED: DILT180T3 PO (11:24)
[2020-09-23] MEDS ORDERED: NITROGLYCERIN SINGLE TAB 0.4 MG SL PRN (11:30)
[2020-09-23] MEDS ORDERED: ASPIRIN 81 MG TABLET CHEW PO ONE (11:30)
[2020-09-23] MEDS ORDERED: SODIUM CHLORIDE FLUSH 10ML SYR IVF ONE (11:30)
--- NOTE | 2020-09-23 11:30 | NUR ---
PT IS A 59F WITH COMPLAINTS OF AN ACHY MID CHEST PAIN THAT IS CONSTANT. DENIES RADIATION. VOMITED THIS MORNING AND COMPLAINS OF FATIGUE AND SOB WELL. HX OF ME LAST FEBRUARY, NO STENTS PLACED. PROVIDER HAS BEEN TO BEDSIDE FOR EVAL AND POC. CARDIAC, BP, AND SP02 MONITORS IN PLACE. CALL LIGHT WITHIN REACH.
[2020-09-23 11:41] LABS: BASOPHILS % (AUTO) 1 % (0-1); EOSINOPHILS % (AUTO) 1 % (1-7); LYMPHOCYTES % (AUTO) 25 % (22-44); MEAN CORPUSCULAR HEMOGLOBIN 28.6 pg (27.0-34.8); MEAN CORPUSCULAR HGB CONC 32.9 g/dL (32.4-35.8); MEAN PLATELET VOLUME 7.6 fL (7.4-10.4); MONOCYTES % (AUTO) 6 % (2-9); NEUTROPHILS % (AUTO) 67 % (42-75); PLATELET COUNT 412 x10^3/uL (130-400); RED BLOOD COUNT 4.19 x10^6/uL (3.82-5.3); RED CELL DISTRIBUTION WIDTH 16.4 % (9.6-15.2)
[2020-09-23 11:43] LABS: MD NO
[2020-09-23 11:49] LABS: ALBUMIN 3.5 g/dL (3.4-5.0); ANION GAP 9 mmol/L (5-15); CALCIUM 11.3 mg/dL (8.5-10.1); CHLORIDE 104 mmol/L (98-107); CREATININE 0.93 mg/dL (0.55-1.02)
[2020-09-23 11:54] LABS: TROPONIN I < 0.015 ng/mL (0.000-0.045)
--- NOTE | 2020-09-23 12:14 | NUR ---
1ST DOSE OF NITRO GIVEN, NO RELIEF YET. VITALS UPDATED.
--- NOTE | 2020-09-23 12:36 | NUR ---
BREAK RN NOTE: PT REPORTS CHEST PAIN IS UNCHANGED SINCE ARRIVAL, RATES AT 7/10 STERNAL AND NONRADIATING. PT STATES FIRST NITROGLYCERIN DOSE DID NOT IMPROVE PAIN LEVEL, SECOND DOSE ADMINISTERED WITH PT CONSENT FOR CONTINUED CHEST PAIN. ALL MONTIORS IN PLACE, SINUS TACH RATE 110'S WITH NO ECTOPY NOTED ON TRAVEL DIRECTOR. AT BEDSIDE. RN REMAINS AT BEDSIDE TO MONITOR PT POST NITRO ADMIN.
--- NOTE | 2020-09-23 12:40 | NUR ---
SPO2 88-93% ON ROOM AIR, OXYGEN APPLIED VIA NC. PT IS A&O, RESPS EVEN AND UNLABORED, ABLE TO SPEAK IN FULL SENTENCES WITHOUT DIFFICULTY. NO S/SX RESP DISTRESS NOTED.
--- NOTE | 2020-09-23 12:41 | NUR ---
PT REPORTS PAIN DOWN FROM 7/10 TO 4/10 S/P NITRO. BP TOLERATING. PT AWAITING CTA AND DISPO. AT BEDSIDE. CALL LIGHT IN REACH.
--- NOTE | 2020-09-23 12:45 | NUR ---
MD Gleason notified pt hypoxic at 88-93% on room air, maintained on oxygen at 2L/min at this time.
--- NOTE | 2020-09-23 13:12 | NUR ---
report given back to primary RN Amena who is resuming care.
--- NOTE | 2020-09-23 13:42 | NUR ---
PT TO CT VIA GABRIELLA
--- NOTE | 2020-09-23 14:07 | NUR ---
PT BACK FROM CT, RESTING COMFORTABLY, WATCHING TV. ALL MONITORS IN PLACE, CALL LIGHT WITHIN REACH.
--- NOTE | 2020-09-23 14:43 | NUR ---
report to Bianca FINCH
[2020-09-23] MEDS ORDERED: OMNIPAQUE 350 MG/ML, 100ML BOTTLE ONE (15:13)
[2020-09-23] MEDS ORDERED: morphine SULFATE 10 MG/ML, 1ML IVPush PRN (15:30)
[2020-09-23] MEDS ORDERED: ACETAMINOPHEN 325 MG TABLET PO PRN (15:30)
[2020-09-23] MEDS ORDERED: ENALAPRILAT 1.25 MG/ML, 2ML IVPush PRN (15:30)
[2020-09-23] MEDS ORDERED: ONDANSETRON 2MG/ML, 2ML IVPush PRN (15:30)
[2020-09-23] MEDS ORDERED: TRAZODONE 50MG TABLET PO PRN (15:30)
[2020-09-23] MEDS ORDERED: hydrALAzine 20 MG/ML, 1ML IVPush PRN (15:30)
[2020-09-23] MEDS ORDERED: ONDANSETRON ODT 4 MG PO PRN (15:30)
[2020-09-23 16:31] LABS: TROPONIN I < 0.015 ng/mL (0.000-0.045)
[2020-09-23] MEDS ORDERED: TEMAZEPAM 15 MG CAPSULE PO PRN (17:30)
[2020-09-23 17:53] LABS: T4 (THYROXINE) 10.2 mcg/dL (4.8-13.9)
[2020-09-23] MEDS ORDERED: SODIUM CHLORIDE 0.9% 1,000ML IVBOLUS ONE (18:00)
[2020-09-23] MEDS ORDERED: TRAZODONE 50MG TABLET PO SCH (21:00)
[2020-09-23 21:33] VITALS: BP 127/83
[2020-09-23 21:40] LABS: TROPONIN I < 0.015 ng/mL (0.000-0.045)
[2020-09-23] MEDS ORDERED: NITROGLYCERIN 0.4 MG BOTTLE (25 TABS) SL PRN (22:00)
[2020-09-23] MEDS ORDERED: NITROGLYCERIN 0.4 MG/SPRAY SL PRN (22:00)
[2020-09-23] MEDS ORDERED: ALUMINUM/MAG/SIMETHICONE 30 ML UDC PO PRN (23:00)
[2020-09-24 02:07] VITALS: BP 103/68
[2020-09-24 05:02] LABS: CHLORIDE 109 mmol/L (98-107)
[2020-09-24 05:09] LABS: ALANINE AMINOTRANSFERASE 26 U/L (12-78); ALBUMIN 2.8 g/dL (3.4-5.0); ALKALINE PHOSPHATASE 80 U/L (45-117); ANION GAP 9 mmol/L (5-15); BILIRUBIN,TOTAL 0.5 mg/dL (0.2-1.0); CALCIUM 8.7 mg/dL (8.5-10.1); CREATININE 0.96 mg/dL (0.55-1.02); TOTAL PROTEIN 5.8 g/dL (6.4-8.2)
[2020-09-24 05:21] LABS: BASOPHILS % (AUTO) 1 % (0-1); EOSINOPHILS % (AUTO) 2 % (1-7); LYMPHOCYTES % (AUTO) 24 % (22-44); MD NO; MEAN CORPUSCULAR HEMOGLOBIN 28.6 pg (27.0-34.8); MEAN CORPUSCULAR HGB CONC 32.9 g/dL (32.4-35.8); MEAN PLATELET VOLUME 8.1 fL (7.4-10.4); MONOCYTES % (AUTO) 7 % (2-9); NEUTROPHILS % (AUTO) 66 % (42-75); PLATELET COUNT 325 x10^3/uL (130-400); RED BLOOD COUNT 3.63 x10^6/uL (3.82-5.3); RED CELL DISTRIBUTION WIDTH 16.2 % (9.6-15.2)
[2020-09-24] MEDS ORDERED: REGADENOSON 0.4 MG/5 ML SYRINGE ONE (08:22)
[2020-09-24 08:33] VITALS: BP 150/78
[2020-09-24] MEDS ORDERED: DIPHENHYDRAMINE 50 MG/ML, 1ML ONE (08:34)
[2020-09-24] MEDS ORDERED: DIPHENHYDRAMINE 50 MG/ML, 1ML IVPush ONE ×2 (09:00→11:30)
[2020-09-24] MEDS ORDERED: LEVOTHYROXINE 100 MCG TABLET PO SCH (09:00)
[2020-09-24] MEDS ORDERED: METHENAMINE HIPPURATE 1 GM TABLET PO SCH (09:00)
[2020-09-24] MEDS ORDERED: PANTOPRAZOLE 40MG TABLET PO SCH (09:00)
[2020-09-24] MEDS ORDERED: ASPIRIN 81 MG TABLET EC PO SCH (09:00)
[2020-09-24] MEDS ORDERED: LIOTHYRONINE 5 MCG TABLET PO SCH (09:00)
[2020-09-24] MEDS ORDERED: metFORMIN XR 500 MG TAB.ER.24H PO SCH (09:00)
[2020-09-24 10:53] VITALS: BP 116/78
[2020-09-24] MEDS ORDERED: ATOR-2 PO (11:16)
[2020-09-24] MEDS ORDERED: DIPHENHYDRAMINE 25 MG CAPSULE PO ONE (13:00)
[2020-09-24 13:06] VITALS: BP 115/76
[2020-09-24] MEDS ORDERED: METH4TAB2 PO (16:21)
== END 2020-09-24 16:25 | disposition home or self-care (01) | DRG 313 ==
LOC: ED 14:30 → EDIP 14:47 → 5SO 15:03 → DCLOUNGE 09-24 16:18
PROVIDERS: ADMIT Hospitalist; ATTEND Hospitalist
DX: R07.89 Other chest pain (principal); D64.9 Anemia, unspecified; E03.9 Hypothyroidism, unspecified; E83.52 Hypercalcemia; E88.09 Other disorders of plasma-protein metabolism, not elsewhere classified; I25.10 Atherosclerotic heart disease of native coronary artery without angina pectoris; I45.10 Unspecified right bundle-branch block; J45.909 Unspecified asthma, uncomplicated; R09.02 Hypoxemia; M06.9 Rheumatoid arthritis, unspecified; Z88.8 Allergy status to other drugs, medicaments and biological substances; I25.2 Old myocardial infarction; Z88.2 Allergy status to sulfonamides; Z83.3 Family history of diabetes mellitus; Z82.49 Family history of ischemic heart disease and other diseases of the circulatory system
CPT/HCPCS: 36415; 71045; 71275; 78452; 80048; 80053; 82040; 83735; 84436; 84443; 84484; 85025; 85379; 87040; 93005; G0378; J2785; Q9967; A9502; J1200; J7030; Q0163

== ENCOUNTER 2020-10-04 14:07 | Emergency (ER) | payer BC, MEDICARE ==
[~2020-10-04] VITALS: Ht 170.2 cm; Wt 98.8 kg
[~2020-10-04 14:07] MED LIST changes: +ASPI-963 PO; +DILT180T3 PO; +LOSA1TAB19 PO; +METF-754 PO; +METH1TAB21 PO; +METH4TAB2 PO
--- NOTE | 2020-10-04 14:24 | NUR ---
59 yo f bib ems w/ c/o weakness, sob, and dizziness, pts states she has been feeling likeshe was going to pass out for the last 3 weeks and has gotten progressively worst, pt being treated for anemia. was due to get an iron treatment pt denies falling and loc. Dr. Rivero at bedside for evaulation. patient attached to all monitors, vss, nadn. at bedside. awaiting orders.
[2020-10-04 14:51] LABS: BASOPHILS % (AUTO) 1 % (0-1); EOSINOPHILS % (AUTO) 1 % (1-7); LYMPHOCYTES % (AUTO) 22 % (22-44); MEAN CORPUSCULAR HGB CONC 32.2 g/dL (32.4-35.8); MEAN PLATELET VOLUME 7.9 fL (7.4-10.4); MONOCYTES % (AUTO) 6 % (2-9); NEUTROPHILS % (AUTO) 70 % (42-75); PLATELET COUNT 357 x10^3/uL (130-400); RED BLOOD COUNT 3.94 x10^6/uL (3.82-5.3); RED CELL DISTRIBUTION WIDTH 16.8 % (9.6-15.2)
[2020-10-04 14:57] LABS: MD NO
[2020-10-04 15:01] LABS: ALANINE AMINOTRANSFERASE 25 U/L (12-78); ALBUMIN 2.9 g/dL (3.4-5.0); ANION GAP 7 mmol/L (5-15); CALCIUM 8.2 mg/dL (8.5-10.1); CHLORIDE 108 mmol/L (98-107); CREATININE 0.94 mg/dL (0.55-1.02)
[2020-10-04 15:03] LABS: ALKALINE PHOSPHATASE 94 U/L (45-117); BILIRUBIN,TOTAL 0.3 mg/dL (0.2-1.0); TOTAL PROTEIN 6.2 g/dL (6.4-8.2)
--- NOTE | 2020-10-04 15:05 | NUR ---
patient resting comfortably, states she feels really tired and weak, but otherwise no complaints, vss, nadn. at bedside.
[2020-10-04 15:49] VITALS: BP 159/94
--- NOTE | 2020-10-04 15:55 | NUR ---
ambulated patient with pulse ox, O2 remains >95%, pt does report she feels weak and dizzy.
--- NOTE | 2020-10-04 16:29 | NUR ---
Patient/Caregiver given discharge instructions and they have confirmed that they understand the instructions. Patient ambulatory with steady gait.
== END 2020-10-04 16:30 | disposition home or self-care (01) ==
LOC: ED 16:03
DX: R06.00 Dyspnea, unspecified (principal); I25.2 Old myocardial infarction; R51.9 Headache, unspecified; R53.83 Other fatigue; R06.02 Shortness of breath; I45.10 Unspecified right bundle-branch block; R55 Syncope and collapse; I10 Essential (primary) hypertension; E11.9 Type 2 diabetes mellitus without complications
CPT/HCPCS: 36415; 71045; 80053; 85025; 93005; 99285

== ENCOUNTER 2020-12-13 16:21 | Emergency (ER) | payer BC, MEDICARE ==
[~2020-12-13] VITALS: Ht 167.6 cm; Wt 94.0 kg
[2020-12-13 16:31] VITALS: BP 174/80
--- NOTE | 2020-12-13 16:58 | NUR ---
Patient given discharge instructions and they have confirmed that they understand the instructions. Patient ambulatory with steady gait.
== END 2020-12-13 16:59 | disposition home or self-care (01) ==
LOC: ED 16:45
DX: B37.2 Candidiasis of skin and nail (principal); K21.9 Gastro-esophageal reflux disease without esophagitis; E11.9 Type 2 diabetes mellitus without complications
CPT/HCPCS: 99283

== ENCOUNTER 2020-12-16 14:46 | Observation (INO) | payer BC, MEDICARE ==
[~2020-12-16] VITALS: Ht 167.6 cm; Wt 96.6 kg
--- NOTE | 2020-12-16 15:40 | NUR ---
INSPECTOR OPEN DIE: PT TO ROOM FROM LOBBY
[2020-12-16 15:49] LABS: BASOPHILS % (AUTO) 1 % (0-1); EOSINOPHILS % (AUTO) 0 % (1-7); LYMPHOCYTES % (AUTO) 9 % (22-44); MEAN CORPUSCULAR HEMOGLOBIN 28.5 pg (27.0-34.8); MEAN CORPUSCULAR HGB CONC 32.1 g/dL (32.4-35.8); MEAN PLATELET VOLUME 8.1 fL (7.4-10.4); MONOCYTES % (AUTO) 3 % (2-9); NEUTROPHILS % (AUTO) 88 % (42-75); PLATELET COUNT 354 x10^3/uL (130-400); RED BLOOD COUNT 4.35 x10^6/uL (3.82-5.3); RED CELL DISTRIBUTION WIDTH 18.5 % (9.6-15.2)
--- NOTE | 2020-12-16 15:57 | NUR ---
PATIENT WALKED BACK FROM TRIAGE WITH CHIEF C/O SOB SINCE YESTERDAY. PATIENT SEEN YESTERDAY WITH ALLERGIC REACTION AND DISCHARGED HOME, PER PATIENT THIS HAS IMPROVED, BUT SHE IS HAVING A DIFFICULT TIME BREATHING. A&OX4, CONNECTED TO MONITOR, VSS, O2 95% ON RA, SPOUSE AT BEDSIDE,CALL LIGHT WITHIN REACH.
[2020-12-16 15:59] LABS: ALANINE AMINOTRANSFERASE 30 U/L (12-78); ALBUMIN 3.5 g/dL (3.4-5.0); ANION GAP 8 mmol/L (5-15); CALCIUM 9.3 mg/dL (8.5-10.1); CHLORIDE 104 mmol/L (98-107); CREATININE 1.13 mg/dL (0.55-1.02)
[2020-12-16 16:02] LABS: ALKALINE PHOSPHATASE 90 U/L (45-117); BILIRUBIN,TOTAL 0.4 mg/dL (0.2-1.0); TOTAL PROTEIN 7.2 g/dL (6.4-8.2)
[2020-12-16] MEDS ORDERED: ALBUTEROL/IPRATROPIUM 2.5MG/0.5MG, 3 ML NEB ONE (16:30)
[2020-12-16] MEDS ORDERED: KETOROLAC 30 MG/1 ML IVPush ONE (16:30)
--- NOTE | 2020-12-16 16:35 | NUR ---
ERMD AT BEDSIDE TO DISCUSS POC.
[2020-12-16] MEDS ORDERED: ALBUTEROL/IPRATROPIUM 2.5MG/0.5MG, 3 ML ONE (17:01)
[2020-12-16] MEDS ORDERED: KETOROLAC 30 MG/1 ML ONE (17:01)
--- NOTE | 2020-12-16 17:11 | NUR ---
PATIENT MEDICATED PER eMAR, NADN, VSS, SPOUSE AT BEDSIDE, CALL LIGHT WITHIN REACH, NO FURTHER NEEDS AT THIS TIME.
[2020-12-16] MEDS ORDERED: KETOROLAC 30 MG/1 ML IM ONE (17:30)
[2020-12-16] MEDS ORDERED: MORPHINE SULFATE 4 MG/ML, 1ML ONE ×2 (18:15→19:07)
[2020-12-16] MEDS ORDERED: LORazepam 2 MG/ML, 1ML ONE (18:16)
[2020-12-16] MEDS ORDERED: METOCLOPRAMIDE 5 MG/ML, 2ML IVPush ONE (18:30)
[2020-12-16] MEDS ORDERED: LORazepam 2 MG/ML, 1ML IVPush ONE (18:30)
[2020-12-16] MEDS ORDERED: MORPHINE SULFATE 4 MG/ML, 1ML IVPush ONE (18:30)
[2020-12-16] MEDS ORDERED: METOCLOPRAMIDE 5 MG/ML, 2ML ONE (18:36)
--- NOTE | 2020-12-16 18:47 | NUR ---
REPORT TO JOSETTE LUA FOR TRANSFER OF PATIENT CARE.
[2020-12-16 18:51] LABS: TROPONIN I < 0.015 ng/mL (0.000-0.045)
--- NOTE | 2020-12-16 19:13 | NUR ---
PT LAYING IN BED, PT COMPLAINING OF CHEST PAIN, IV MORPHINE GIVEN, ALL NEEDS IN REACH, CALL LIGHT IN REACH, NAD
[2020-12-16] MEDS ORDERED: ASPIRIN 81 MG TABLET CHEW ONE (19:26)
[2020-12-16] MEDS ORDERED: ASPIRIN 81 MG TABLET CHEW PO ONE (19:30)
[2020-12-16] MEDS ORDERED: NITROGLYCERIN 0.4 MG BOTTLE (25 TABS) SL PRN (20:30)
[2020-12-16] MEDS ORDERED: POLYETHYLENE GLYCOL 17 GM PACKET PO PRN (20:30)
[2020-12-16] MEDS ORDERED: morphine SULFATE 10 MG/ML, 1ML IVPush PRN (20:30)
[2020-12-16] MEDS ORDERED: BISACODYL 10 MG SUPP PR PRN (20:30)
[2020-12-16] MEDS ORDERED: ONDANSETRON ODT 4 MG PO PRN (20:30)
--- NOTE | 2020-12-16 20:34 | NUR ---
PT LAYING IN BED, A/OX4, PT REPORTS A DECREASE IN CHEST PAIN, PT STARTED ON 2 LPM NASAL CANULA BECAUSE PT GIVEN IV MORPHINE, AT BEDSIDE, ALL NEEDS IN REACH, CALL LIGHT IN REACH
[2020-12-16 20:49] LABS: FREE T4 (FREE THYROXINE) 1.01 ng/dL (0.76-1.46)
[2020-12-16] MEDS: metFORMIN XR 500 MG TAB.ER.24H PO SCH (21:00)
[2020-12-16] MEDS ORDERED: ACETAMINOPHEN 325 MG TABLET ONE (22:07)
[2020-12-16] MEDS ORDERED: TRAZODONE 50MG TABLET ONE (22:07)
[2020-12-16] MEDS ORDERED: ATORVASTATIN 80 MG TABLET ONE (22:08)
[2020-12-16 22:09] LABS: TROPONIN I < 0.015 ng/mL (0.000-0.045)
[2020-12-16] MEDS: ATORVASTATIN 80 MG TABLET PO SCH (22:10)
[2020-12-16] MEDS: TRAZODONE 50MG TABLET PO SCH (22:10)
[2020-12-16] MEDS: ACETAMINOPHEN 325 MG TABLET PO PRN (22:10)
--- NOTE | 2020-12-16 23:24 | NUR ---
PT ALSEEP IN BED, ALL NEEDS IN REACH, CALL LIGHT IN REACH, NAD
[2020-12-17] MEDS ORDERED: metFORMIN 500 MG TABLET ONE (00:10)
--- NOTE | 2020-12-17 00:14 | NUR ---
PT LAYING IN BED, A/OX4, FINGERSTICK 324, METFORMIN GIVEN, ALL NEEDS IN REACH, CALL LIGHT IN REACH, NAD
--- NOTE | 2020-12-17 00:56 | NUR ---
PT ASLEEP IN BED, ALL NEEDS IN REACH, CALL LIGHT IN REACH, NAD
--- NOTE | 2020-12-17 01:53 | NUR ---
PT ASLEEP IN BED, ALL NEEDS IN REACH, CALL LIGHT IN REACH, NAD
--- NOTE | 2020-12-17 02:28 | NUR ---
PT ASLEEP IN BED, ALL NEEDS IN REACH, CALL LIGHT IN REACH, NAD
--- NOTE | 2020-12-17 03:02 | NUR ---
PT ASLEEP IN BED, ALL NEEDS IN REACH, CALL LIGHT IN REACH, NAD
[2020-12-17 04:08] LABS: TROPONIN I < 0.015 ng/mL (0.000-0.045)
--- NOTE | 2020-12-17 04:18 | NUR ---
PT ASLEEP IN ROOM, ALL NEEDS IN REACH, CALL LIGHT IN REACH, NAD
--- NOTE | 2020-12-17 05:10 | NUR ---
PT ASLEEP IN BED, ALL NEEDS IN REACH, CALL LIGHT IN REACH, NAD
[2020-12-17] MEDS: LIOTHYRONINE 5 MCG TABLET PO SCH (06:07)
[2020-12-17] MEDS: LEVOTHYROXINE 100 MCG TABLET PO SCH (06:07)
--- NOTE | 2020-12-17 06:13 | NUR ---
PT ASLEEP WHEN THIS RN ENTERED ROOM, PT WOKEN UP FOR 6AM MEDS, PT EASILY AWOKEN, VITALS TAKEN AT THIS TIME, ALL NEEDS IN REACH, CALL LIGHT IN REACH, NAD, PT WENT BACK TO SLEEP AFTER MEDICATIONS
--- NOTE | 2020-12-17 07:15 | NUR ---
PT RESTING IN BED, CALL REMOTE WITHIN REACH. NADN. BARRIOS.
--- NOTE | 2020-12-17 07:30 | NUR ---
RECEIVED REPORT FROM MITCHELL FINCH TO ASSUME CARE.
--- NOTE | 2020-12-17 08:06 | NUR ---
REPORT GIVEN TO LENNOX FINCH RM 501 TO ASSUME CARE.
[2020-12-17 08:07] LABS: MEAN CORPUSCULAR HEMOGLOBIN 28.9 pg (27.0-34.8); MEAN CORPUSCULAR HGB CONC 32.7 g/dL (32.4-35.8); PLATELET COUNT 316 x10^3/uL (130-400); RED BLOOD COUNT 4.35 x10^6/uL (3.82-5.3); RED CELL DISTRIBUTION WIDTH 18.6 % (9.6-15.2)
[2020-12-17] MEDS ORDERED: PANTOPRAZOLE 40MG TABLET ONE (08:10)
[2020-12-17] MEDS: PANTOPRAZOLE 40MG TABLET PO SCH (08:13)
[2020-12-17 08:46] LABS: BAND#(MANUAL) 0.42 x10^3/uL; BANDS%(MANUAL) 3 % (0-7); LYMPH#(MANUAL) 1.96 x10^3/uL (1-3.4); LYMPHS% (MANUAL) 14 % (22-44); MONOS#(MANUAL) 0.28 x10^3/uL (0.3-2.7); MONOS% (MANUAL) 2 % (2-9); SEG#(MANUAL) 11.34 x10^3/uL (1.8-6.8); SEGS% (MANUAL) 81 % (42-75)
[2020-12-17 08:47] LABS: <PLATELET ESTIMATE> ADEQUATE; <PLT MORPHOLOGY> NORMAL PLT MORPH; ANISOCYTOSIS 1+; OVALOCYTES 1+
--- NOTE | 2020-12-17 08:58 | NUR ---
BELONGINGS AND MORNING MEDS SENT WITH LEGAL ENTITY CONTROLLER TO ROOM 501.
[2020-12-17] MEDS ORDERED: LOSARTAN 50MG TABLET PO SCH (09:00)
[2020-12-17] MEDS: METHENAMINE HIPPURATE 1 GM TABLET PO SCH (10:04)
[2020-12-17] MEDS: SENNA/DOCUSATE TABLET PO SCH (10:04)
[2020-12-17] MEDS: metFORMIN XR 500 MG TAB.ER.24H PO SCH ×2 (10:05→20:08)
[2020-12-17] MEDS: ASPIRIN 81 MG TABLET EC PO SCH (10:05)
[2020-12-17] MEDS: DILTIAZEM 240 MG CAP.ER.24H PO SCH (10:05)
[2020-12-17] MEDS: BUPROPION SR 150 MG TABLET PO SCH (10:05)
[2020-12-17] MEDS: HYDROCHLOROTHIAZIDE 12.5 MG CAPSULE PO SCH (10:05)
[2020-12-17] MEDS ORDERED: BUDESONIDE 0.5 MG/2 ML INHA INH SCH (10:30)
[2020-12-17] MEDS ORDERED: ALBUTEROL/IPRATROPIUM 2.5MG/0.5MG, 3 ML NPPB SCH (11:00)
[2020-12-17 12:07] VITALS: BP 141/81
[2020-12-17] MEDS: GUAIFENESIN/COD200MG-20MG/10ML LIQUID PO SCH ×2 (12:49→18:23)
[2020-12-17] MEDS: KETOROLAC 30 MG/1 ML IVPush SCH ×2 (12:50→18:23)
[2020-12-17] MEDS: ALBUTEROL SULFATE 2.5 MG/3 ML NPPB PRN ×2 (14:20→21:40)
[2020-12-17] MEDS ORDERED: morphine SULFATE 10 MG/ML, 1ML IVPush PRN (16:00)
[2020-12-17 18:56] LABS: MICROSCOPIC AUTO
[2020-12-17 19:05] VITALS: BP 125/74
[2020-12-17] MEDS: TRAZODONE 50MG TABLET PO SCH (20:08)
[2020-12-17] MEDS: ATORVASTATIN 80 MG TABLET PO SCH (20:09)
[2020-12-17] MEDS: LOSARTAN 50MG TABLET PO SCH (20:09)
[2020-12-17] MEDS: ACETAMINOPHEN 325 MG TABLET PO PRN (22:26)
[2020-12-18] MEDS: KETOROLAC 30 MG/1 ML IVPush SCH ×3 (00:09→11:45)
[2020-12-18] MEDS: GUAIFENESIN/COD200MG-20MG/10ML LIQUID PO SCH ×3 (00:09→12:40)
[2020-12-18 00:12] VITALS: BP 99/48
[2020-12-18] MEDS: ACETAMINOPHEN 325 MG TABLET PO PRN ×2 (04:20→10:22)
[2020-12-18] MEDS: LEVOTHYROXINE 100 MCG TABLET PO SCH (05:04)
[2020-12-18] MEDS: LIOTHYRONINE 5 MCG TABLET PO SCH (05:04)
[2020-12-18 05:17] LABS: BASOPHILS % (AUTO) 1 % (0-1); EOSINOPHILS % (AUTO) 0 % (1-7); LYMPHOCYTES % (AUTO) 13 % (22-44); MEAN CORPUSCULAR HGB CONC 32.7 g/dL (32.4-35.8); MEAN PLATELET VOLUME 8.4 fL (7.4-10.4); MONOCYTES % (AUTO) 7 % (2-9); NEUTROPHILS % (AUTO) 79 % (42-75); PLATELET COUNT 323 x10^3/uL (130-400); RED BLOOD COUNT 4.24 x10^6/uL (3.82-5.3); RED CELL DISTRIBUTION WIDTH 19.1 % (9.6-15.2)
[2020-12-18 05:25] LABS: ANION GAP 10 mmol/L (5-15); CALCIUM 9.1 mg/dL (8.5-10.1); CHLORIDE 103 mmol/L (98-107); CREATININE 1.18 mg/dL (0.55-1.02)
[2020-12-18 06:36] VITALS: BP 143/78
[2020-12-18] MEDS: metFORMIN XR 500 MG TAB.ER.24H PO SCH (08:11)
[2020-12-18] MEDS: SENNA/DOCUSATE TABLET PO SCH (08:11)
[2020-12-18] MEDS: DILTIAZEM 240 MG CAP.ER.24H PO SCH (08:11)
[2020-12-18] MEDS: LOSARTAN 50MG TABLET PO SCH (08:12)
[2020-12-18] MEDS: METHENAMINE HIPPURATE 1 GM TABLET PO SCH (08:12)
[2020-12-18] MEDS: ASPIRIN 81 MG TABLET EC PO SCH (08:12)
[2020-12-18] MEDS: BUPROPION SR 150 MG TABLET PO SCH (08:12)
[2020-12-18] MEDS: PANTOPRAZOLE 40MG TABLET PO SCH (08:13)
[2020-12-18] MEDS: HYDROCHLOROTHIAZIDE 12.5 MG CAPSULE PO SCH (08:13)
[2020-12-18] MEDS ORDERED: DIPHENHYDRAMINE 25 MG CAPSULE ONE (08:29)
[2020-12-18] MEDS ORDERED: DIPHENHYDRAMINE 25 MG CAPSULE PO ONE (08:30)
[2020-12-18 11:59] VITALS: BP 150/82
[2020-12-18] MEDS ORDERED: GUAI120L37 PO (15:33)
[2020-12-18] MEDS ORDERED: OXYC5TAB98 PO (15:33)
== END 2020-12-18 16:23 | disposition home or self-care (01) ==
LOC: ED 15:44 → INTOOBSV 19:17 → EDIP 19:17 → 5SO 12-17 08:11 → EDIP 12-17 08:15 → 5SO 12-17 08:59 → DCLOUNGE 12-18 16:13
PROVIDERS: ADMIT Internal Medicine; ATTEND Hospitalist
DX: R07.89 Other chest pain (principal); R07.81 Pleurodynia; R06.00 Dyspnea, unspecified; R09.1 Pleurisy; E11.65 Type 2 diabetes mellitus with hyperglycemia; D84.9 Immunodeficiency, unspecified; I25.10 Atherosclerotic heart disease of native coronary artery without angina pectoris; D50.9 Iron deficiency anemia, unspecified; M06.9 Rheumatoid arthritis, unspecified; I21.4 Non-ST elevation (NSTEMI) myocardial infarction; E03.9 Hypothyroidism, unspecified; L51.1 Stevens-Johnson syndrome; R53.82 Chronic fatigue, unspecified; G47.00 Insomnia, unspecified; K58.9 Irritable bowel syndrome, unspecified; J45.909 Unspecified asthma, uncomplicated; F32.9 Major depressive disorder, single episode, unspecified; E78.5 Hyperlipidemia, unspecified; Z79.82 Long term (current) use of aspirin; Z79.899 Other long term (current) drug therapy
CPT/HCPCS: 36415; 71045; 71250; 80048; 80053; 81001; 82962; 83036; 84145; 84439; 84443; 84481; 84484; 85025; 85379; 87077; 87086; 93005; 94640; 96372; 96374; 96375; 96376; 99285; G0378; J1885; J2060; J2270; J2765; J7613; Q0163

== ENCOUNTER 2021-02-11 09:03 | Emergency (ER) | payer BC, MEDICARE ==
[~2021-02-11] VITALS: Ht 167.6 cm; Wt 94.4 kg
[~2021-02-11 09:03] MED LIST changes: +GUAI120L37 PO; +OXYC5TAB98 PO
[2021-02-11] MEDS ORDERED: ACETAMINOPHEN 500 MG TABLET ONE (09:36)
--- NOTE | 2021-02-11 09:46 | NUR ---
TYL GIVEN IN TRIAGE
--- NOTE | 2021-02-11 09:59 | NUR ---
TO ROOM FROM LOBBY. NAD. PT INSTRUCTED TO CHANGE INTO HOSPITAL GOWN, VERBALIZED UNDERSTANDING. SPOUSE AT BEDSIDE.
[2021-02-11] MEDS ORDERED: ACETAMINOPHEN 500 MG TABLET PO ONE (10:00)
--- NOTE | 2021-02-11 10:27 | NUR ---
PT TO ROOM T2 W/ C/O FEVERS, CHILLS, FEELING WEAKN, LIGHTHEADED, NAUSEA, AND R FLANK PAIN. PT STATES SHE FEELS SIMILAR TO WHEN SHE HAD LOW IRON IN SEPTEMBER. PT STATES SHE HAS NOT HAD URINARY SYMPTOMS BUT IS HAVING R FLANK PAIN. PT STATES SX STARTED YESTERDAY. PT RECEIVED COVID VACCINES IN SEPTEMBER/OCTOBER. PT RESTING ON GURNEY. NADN. MONITORS APPLIED. TEMP DECREASING. ALL OTHER VSS. SHEET PROVIDED. CALL LIGHT IN REACH. FAMILY AT BEDSIDE.
[2021-02-11] MEDS ORDERED: SODIUM CHLORIDE 0.9% 1,000ML IVBOLUS ONE (11:00)
[2021-02-11 11:01] LABS: BASOPHILS % (AUTO) 0 % (0-1); EOSINOPHILS % (AUTO) 0 % (1-7); LYMPHOCYTES % (AUTO) 9 % (22-44); MEAN CORPUSCULAR HEMOGLOBIN 29.2 pg (27.0-34.8); MEAN CORPUSCULAR HGB CONC 32.6 g/dL (32.4-35.8); MEAN PLATELET VOLUME 7.9 fL (7.4-10.4); MONOCYTES % (AUTO) 3 % (2-9); NEUTROPHILS % (AUTO) 88 % (42-75); PLATELET COUNT 224 x10^3/uL (130-400); RED BLOOD COUNT 4.32 x10^6/uL (3.82-5.3); RED CELL DISTRIBUTION WIDTH 16.5 % (9.6-15.2)
[2021-02-11 11:09] LABS: ALANINE AMINOTRANSFERASE 211 U/L (12-78); ALBUMIN 3.1 g/dL (3.4-5.0); ANION GAP 7 mmol/L (5-15); CHLORIDE 106 mmol/L (98-107); CREATININE 0.93 mg/dL (0.55-1.02)
[2021-02-11 11:11] LABS: ALKALINE PHOSPHATASE 70 U/L (45-117); BILIRUBIN,TOTAL 0.8 mg/dL (0.2-1.0); TOTAL PROTEIN 6.6 g/dL (6.4-8.2)
--- NOTE | 2021-02-11 11:23 | NUR ---
PT RESTING ON GURNEY. NADN. TEMP NOTED TO INCREASE FROM 100.1 TO 100.4 ERP NOTIFIED.
[2021-02-11 11:35] LABS: MICROSCOPIC INDICATED
[2021-02-11] MEDS ORDERED: IBUPROFEN 600 MG TABLET ONE (11:37)
[2021-02-11] MEDS ORDERED: ONDANSETRON 2MG/ML, 2ML ONE (11:51)
[2021-02-11] MEDS ORDERED: HYDROmorphone 1 MG/ML, 1ML INJ ONE (11:51)
[2021-02-11] MEDS ORDERED: IBUPROFEN 600 MG TABLET PO ONE (12:00)
[2021-02-11] MEDS ORDERED: IBUPROFEN 200 MG TABLET PO ONE (12:00)
[2021-02-11] MEDS ORDERED: ONDANSETRON 2MG/ML, 2ML IVPush ONE (12:00)
[2021-02-11] MEDS ORDERED: HYDROmorphone 1 MG/ML, 1ML INJ IV ONE (12:00)
--- NOTE | 2021-02-11 12:37 | NUR ---
PT RESTING ON GURNEY. NADN. BARRIOS.
[2021-02-11] MEDS ORDERED: NITROFURANTOIN (MACROBID) 100 MG CAPSULE PO ONE (13:00)
--- NOTE | 2021-02-11 13:10 | NUR ---
YELLOW SLIP SENT TO PHARMACY FOR MEDS PER SEP.
--- NOTE | 2021-02-11 13:20 | NUR ---
PT CHART REVIEWED AND PLACED FOR RECHECK.
[2021-02-11 13:59] VITALS: BP 107/50
--- NOTE | 2021-02-11 14:01 | NUR ---
PT RESTING ON GURNEY. NADN. BARRIOS.
== END 2021-02-11 14:18 | disposition home or self-care (01) ==
LOC: ED 09:52
DX: N30.00 Acute cystitis without hematuria (principal); R50.9 Fever, unspecified; R79.89 Other specified abnormal findings of blood chemistry; R00.0 Tachycardia, unspecified; I10 Essential (primary) hypertension; E11.9 Type 2 diabetes mellitus without complications; I25.2 Old myocardial infarction; E03.9 Hypothyroidism, unspecified; J45.909 Unspecified asthma, uncomplicated; M06.9 Rheumatoid arthritis, unspecified
CPT/HCPCS: 36415; 71045; 76700; 80053; 81001; 83605; 85025; 87040; 87086; 93005; 96361; 96374; 96375; 99285; J1170; J2405; J7030

== ENCOUNTER 2021-02-13 11:24 | Emergency (ER) | payer BC, MEDICARE ==
[~2021-02-13] VITALS: Ht 167.6 cm; Wt 95.0 kg
[2021-02-13 11:27] VITALS: BP 137/87
[2021-02-13] MEDS ORDERED: FLUORESCEIN OPHTHALMIC 1 MG STRIP ONE (12:19)
[2021-02-13] MEDS ORDERED: FLUORESCEIN OPHTHALMIC 1 MG STRIP EACHEYE ONE (12:30)
--- NOTE | 2021-02-13 12:53 | NUR ---
Patient given discharge instructions and they have confirmed that they understand the instructions. Patient ambulatory with steady gait.
== END 2021-02-13 12:54 | disposition home or self-care (01) ==
LOC: ED 12:07
DX: L03.115 Cellulitis of right lower limb (principal); E11.9 Type 2 diabetes mellitus without complications; I10 Essential (primary) hypertension; K21.9 Gastro-esophageal reflux disease without esophagitis; I25.2 Old myocardial infarction; E03.9 Hypothyroidism, unspecified; Z79.899 Other long term (current) drug therapy
CPT/HCPCS: 99283

== ENCOUNTER 2021-03-31 14:08 | Emergency (ER) | payer BC, MEDICARE ==
[~2021-03-31] VITALS: Ht 167.6 cm; Wt 91.8 kg
--- NOTE | 2021-03-31 15:04 | NUR ---
PT HAD HEART ABLATION 2 WEEKS AGO. PT C/O IRREGULAR HEART RATE, SOB, AND LIGHT HEADED. HR IMPROVED WITH REST AT THIS TIME HR 100, BLOOD PRESSURE WNL PLACED ON CARPENTER WOODEN TANK ERECTING UPDATED ON ESTIMATED POC
--- NOTE | 2021-03-31 15:08 | NUR ---
REPORT FROM STEVE FINCH
--- NOTE | 2021-03-31 15:08 | NUR ---
REPORT TO UYEN FINCH
[2021-03-31 15:15] LABS: BASOPHILS % (AUTO) 1 % (0-1); EOSINOPHILS % (AUTO) 1 % (1-7); LYMPHOCYTES % (AUTO) 19 % (22-44); MEAN CORPUSCULAR HEMOGLOBIN 30.6 pg (27.0-34.8); MEAN CORPUSCULAR HGB CONC 32.6 g/dL (32.4-35.8); MEAN PLATELET VOLUME 8.3 fL (7.4-10.4); MONOCYTES % (AUTO) 7 % (2-9); NEUTROPHILS % (AUTO) 73 % (42-75); PLATELET COUNT 381 x10^3/uL (130-400); RED BLOOD COUNT 4.48 x10^6/uL (3.82-5.3); RED CELL DISTRIBUTION WIDTH 15.7 % (9.6-15.2)
[2021-03-31 15:23] LABS: ALANINE AMINOTRANSFERASE 57 U/L (12-78); ALBUMIN 3.5 g/dL (3.4-5.0); ANION GAP 13 mmol/L (5-15); CALCIUM 9.1 mg/dL (8.5-10.1); CHLORIDE 106 mmol/L (98-107)
[2021-03-31 15:28] LABS: ALKALINE PHOSPHATASE 71 U/L (45-117); BILIRUBIN,TOTAL 0.6 mg/dL (0.2-1.0); CREATININE 1.49 mg/dL (0.55-1.02); TOTAL PROTEIN 7.1 g/dL (6.4-8.2); TROPONIN I < 0.015 ng/mL (0.000-0.045)
[2021-03-31 15:53] LABS: FREE T4 (FREE THYROXINE) 1.63 ng/dL (0.76-1.46)
[2021-03-31 16:00] VITALS: BP 138/74
[2021-03-31] MEDS ORDERED: METOPROLOL TARTRATE 25 MG TAB ONE (16:26)
[2021-03-31] MEDS ORDERED: METOPROLOL TARTRATE 25 MG TAB PO ONE (16:30)
--- NOTE | 2021-03-31 17:41 | NUR ---
Patient given discharge instructions and they have confirmed that they understand the instructions. Patient ambulatory with steady gait. NAD, all questions answered appropriately, denies additional needs at this time. No personal belongings left in room after discharge.
== END 2021-03-31 17:55 | disposition home or self-care (01) ==
LOC: ED 16:28
DX: R00.2 Palpitations (principal); I48.91 Unspecified atrial fibrillation; R42 Dizziness and giddiness; R06.00 Dyspnea, unspecified; I10 Essential (primary) hypertension; E11.9 Type 2 diabetes mellitus without complications; I25.2 Old myocardial infarction; E03.9 Hypothyroidism, unspecified; K21.9 Gastro-esophageal reflux disease without esophagitis; J45.909 Unspecified asthma, uncomplicated; Z88.1 Allergy status to other antibiotic agents; Z88.5 Allergy status to narcotic agent; Z91.041 Radiographic dye allergy status; Z88.3 Allergy status to other anti-infective agents; Z88.7 Allergy status to serum and vaccine
CPT/HCPCS: 36415; 71045; 80053; 83735; 84439; 84443; 84481; 84484; 85025; 93005; 99285